=== PATIENT | female | born 1960 | race Caucasian/White ===

== ENCOUNTER 2017-05-04 22:24 | Emergency (ER) | payer MEDICAID ==
[~2017-05-04] VITALS: Ht 182.9 cm; Wt 81.8 kg
[2017-05-04 22:31] VITALS: BP 105/66
== END 2017-05-04 23:40 | disposition home or self-care (01) ==
LOC: ED 23:33
DX: L02.416 Cutaneous abscess of left lower limb (principal); L02.414 Cutaneous abscess of left upper limb; L03.115 Cellulitis of right lower limb; L03.116 Cellulitis of left lower limb
CPT/HCPCS: 99283

== ENCOUNTER 2017-06-19 19:56 | Emergency (ER) | payer MEDICAID ==
[~2017-06-19] VITALS: Ht 182.9 cm; Wt 78.0 kg
[2017-06-19 20:09] VITALS: BP 114/67
[2017-06-19] MEDS ORDERED: BACITRACIN ZINC OINT 500U/GM, 0.9 GM ONE (21:00)
== END 2017-06-19 21:45 | disposition home or self-care (01) ==
LOC: ED 19:58
DX: L03.116 Cellulitis of left lower limb (principal); S90.822A Blister (nonthermal), left foot, initial encounter; Z59.0 Homelessness; X58.XXXA Exposure to other specified factors, initial encounter; Y93.89 Activity, other specified; Y92.89 Other specified places as the place of occurrence of the external cause; Y99.8 Other external cause status
CPT/HCPCS: 99283